=== PATIENT | male | born 1965 | race Caucasian/White ===

== ENCOUNTER 2023-11-15 12:47 | Outpatient (CLI) | payer OTHER ==
--- NOTE | 2023-11-15 14:04 | SLEEP CARE CONSULTATION ---
Information from patient questionnaire entered by Rodney Combs. I have reviewed and concur with the information entered by Rodney Combs. This document represents the service I personally performed and the decisions made by me, Lexi Islas ARNP. History of Present Illness Service Date and Time: 11/15/2023 1247 Reason for Visit: New patient, Previously diagnosed sleep apnea Chief Complaint: reports: Insomnia, Unrefreshed sleep, Snoring, Excessive daytime sleepiness, Observed pauses in breathing, Fatigue, Frequent awakenings at night Date of Onset: 20 years Usual bedtime: 11 PM Time it takes to fall asleep: ? Snores at night: Yes Observed to quit breathing while asleep: Yes Sleeps alone due to snoring: Yes Number of times waking at night: 2 - 3 Reasons for waking at night: reports: Bathroom, Other (Unknown reason). denies: Choking, Gasping for air Toss, Turn, or Twitch while sleeping: No Recalls having dreams: Yes (Yes and no) Usually gets out of bed at: 3 AM Feels refreshed in the morning: No Morning headache: No Sleepy or fatigued during the day: Yes Ever fallen asleep while driving: No Takes day naps: Yes (2 hours in morning 7-9; nap in afternoon at 4 for 2 hours) Dreams during day naps: Yes Prior sleep studies: Yes Year and Where: 7 months ago at [facility] in [place], [place] Type of Sleep Study: Home sleep study Additional HPI information: I had the pleasure of seeing ALONSO HUTCHINS today regarding the possibility of him having a sleep disorder. He was previously diagnosed with severe obstructive sleep apnea with an average AHI of 40.3 and a HST dated 01/21/2023 through [facility]. His current complaints are excessive daytime sleepiness, fatigue, frequent night awakenings, insomnia, observed pauses in breathing, snoring and unrefreshed sleep. He states he was helping out his ex- who was and had broke her ankle. He was traveling between his home and hers to help her out for a couple of days a week. It ended up that his compliance was less than needed and they repossessed his machine. He states they even charged him $138. He was using [facility] and states he will not go back to them. He would like to get back on a CPAP machine but needs a new machine. He does not want to deal with insurance and compliance issues. He is willing to purchase one by himself but he will need supplies to use it. He also does not want to go through another sleep study. - Parasomnia Symptoms Ever been unable to move upon waking from sleep: No Walks in sleep: No Talks in sleep: Yes Ever acted out dreams in sleep: No Ever felt weak in the knees when startled or emotional: No Bothered by creepy, crawly, restless sensations in legs: No Problems with memory or concentration: Yes (both) CPAP Compliance Data Compliance data discussion: He had a CPAP that was taken back for non-compliance. He does not want to deal with insurance for another CPAP. He was using a full face mask. 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 Patient is single and lives in [place]. Have you smoked in the past 12 months: No Alcohol use: No Caffeine use: No Family History Family history of sleep disordered breathing: Yes ( ) Family Hx Sleep Apnea: Father: Snoring, Sleep apnea - Untreated Allergies and Home Medications Known drug allergies: No Drug allergies reviewed: Yes Home medication list reviewed: Yes (as listed) Allergy and home medication list: Medications: insulin pen Metformin 2000 mg daily Prasugrel (blood thinner) Lisinopril low dose aspirin Atorvastatin Verapamil for headaches Review of Systems Cardiovascular: reports: high blood pressure, leg or foot swelling Respiratory: reports: shortness of breath, wheeze Gastrointestinal: reports: diarrhea, abdominal pain Urinary: reports: urgency Neurological: reports: headaches Psychiatric: reports: depression Ear/Nose/Throat: reports: nasal congestion, sinus problems, nose bleeds, dry mouth/throat, wisdom teeth removed Endocrine: reports: excessive thirst, increased urination Musculoskeletal: reports: joint pain (/stiffness), neck pain, back pain, muscle pain or cramping Immunologic: reports: sneezing (/runny nose) Physical Exam Vital signs obtained and entered by: Lexi Armstrong NP Blood Pressure: 114/74 Cuff size: long (right arm) Heart Rate: 71 O2 Saturation: 96 Height: 5 ft 9 in Weight: 281 lb 3.2 oz Body Mass Index: 41.5 BMI Classification: Morbidly Obese Neck circumference: 19 Mouth and throat: narrow oropharynx Soft palate: long Hard palate: normal Uvula: normal Uvula visualization: 0% Mallampati Class IV Tongue: enlarged in size with teeth padilla on lateral edges Tonsils: 2+ Neck: normal w/o lymphadenopathy or thyromegaly Heart: regular rate and rhythm Lungs: clear bilaterally Impression and Plan 1. Obstructive Sleep Apnea-Hypopnea Syndrome, severe. He is not currently able to use a CPAP machine because he had to return the CPAP for non-compliance. He wants to purchase his own CPAP, possibly an older model. I will supply him with a prescription so that it can be set up if he gets one through a CPAP supplier. We can set him up with supplies through a DME supplier once he has his new machine. He is to call us once he has his new device so that he can bring it in to have the pressures set. He will then need to use it for a month and follow- up for pressure adjustments. He voiced understanding and agreement with this plan of care. Patient's apnea severity and rationale for treatment to reduce apnea, improve sleep quality and reduce cardiovascular and cerebrovascular events was reviewed. I also reviewed the benefit of consistent device use of CPAP for hypertension, cardiac disease, diabetes, gastric reflux, anxiety. 2. Obesity, unspecified. Currently patients BMI is 41.5. Obesity increases the risk of apnea, CPAP pressure requirements and overall health risks especially cardiovascular and diabetes. Thus patient is advised to lose weight. * Continue auto CPAP pressure at 5-15 cmH2O * Transfer DME for supplies only * Prescription for CPAP give to patient since he wants to purchase one on his own * Notify me if snoring with mask or feeling that the pressure is too much or too little * Attempt to lose weight * Call this office if any problems using CPAP * Return for follow up a month after he obtains new device, or sooner if concerns arise Counseling Topics: Weight loss health impact Prescriptions: Auto CPAP, Device supplies Follow up with Sleep Care in: as needed Visit Type: In Office Time Spent with Patient (minutes): 44 Provider Statement: I spent 100% of the Face to Face Visit with the patient with greater than 50% spent counseling the patient and coordination of care.
[2023-11-15 14:23] VITALS: BP 114/74; O2SAT 96
== END 2023-11-15 12:48 | disposition home or self-care (01) ==
LOC: SC 12:47
PROVIDERS: ATTEND Nurse Practitioner Family
DX: G47.33 Obstructive sleep apnea (adult) (pediatric) (principal); E66.01 Morbid (severe) obesity due to excess calories; Z68.41 Body mass index [BMI] 40.0-44.9, adult; I10 Essential (primary) hypertension
CPT/HCPCS: 99203; 99212